=== PATIENT | female | born 1945 ===

== ENCOUNTER 2016-05-29 16:00 | Inpatient (IN) | payer MEDICARE, MEDICAID ==
[~2016-05-29] VITALS: Ht 170.2 cm; Wt 86.7 kg
--- NOTE | ~2016-05-29 | HP ---
PATIENT'S NAME: ALEX MONTANEZ [facility] AGE: 70 Y [address] ROOM: [address] [place], [place] [address] [facility] ADMIT DATE: 05/29/2016 History & Physical DISCHARGE DATE: FAMILY PHYSICIAN: Catrina Reyes MD ATTENDING PHYSICIAN: CIERA CHO DATE OF SERVICE: CHIEF COMPLAINT: Dyspnea at rest and also on exertion on and off as well as productive cough for the last 4 days. The patient is not sure what color is the phlegm. HISTORY OF PRESENT ILLNESS: This is a 70-year-old female, who is somewhat a poor historian. The story is that she says that she has COPD diagnosis for many years, but she does not use any oxygen at home and at baseline she denies any daily productive cough from the chronic bronchitis. She says at baseline, occasionally she gets shortness of breath on exertion. She is active cigarette smoker about 3 cigarettes per day according to her for many years and she tried to quit about 4 days ago. The story is that she said for the last 4 days, she has been experiencing this worsening dyspnea on exertion and sometimes at rest and also productive cough for the last 4 days, but she could not really remember what color was the phlegm. Because of these symptoms, the patient went to see her primary care physician in the office today. Over there in the office, the patient was found to be hypoxic on room air at 89% of saturation and heart rate in the 74 sinus with systolic blood pressure in the 140. Blood work from the clinic show white blood cell of 26,000 and x-ray was performed in the office showed questionable right lower lung infiltrate concerning for pneumonia. The patient was sent over here for admission and further care. REVIEW OF SYSTEMS: As mentioned in the history of present illness. All other systems reviewed and negative except those mentioned in the history of present illness. PAST MEDICAL HISTORY: 1. COPD, not on home oxygen. 2. 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 3. Hypertension. 4. Hyperlipidemia. 5. History of polycystic kidney disease according to the patient and her mother also had this problem too. 6. Prior history of ischemic stroke in the past, many years ago without neurological deficit. PATIENT'S NAME: LISSETH [facility] Nikita [facility] AGE: 70 Y [address] ROOM: [address] [address] LOC[facility]: [facility] ADMIT DATE: 05/29/2016 History & Physical DISCHARGE DATE: FAMILY PHYSICIAN: Catrina Reyes MD ATTENDING PHYSICIAN: CIERA CHO. 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 I do not have the medical records from over there, but according to the patient, the patient had some procedure performed in the brain and the patient was cured without any neurologic deficit. ALLERGIES: MORPHINE, WHICH CAUSES DROWSINESS. HOME MEDICATIONS: Currently is being reconciled. SOCIAL HISTORY: The patient was a former cigarette smoker about 3 cigarettes per day, according to the patient for many years, more than 50 years, and she just recently quit smoking just roughly 4 days ago. She denies any alcohol or any illegal drug use. PAST SURGICAL HISTORY: Status post appendectomy according to the patient. FAMILY HISTORY: The patient could not remember any medical problems in either parents. Both are , but she has no recollection from what cause. PHYSICAL EXAMINATION: VITAL SIGNS: At the time of my dictation; temperature 97.5, heart rate 77, respirations 20, blood pressure 102/52, and saturation 93% on room air. Pain 0/10. GENERAL APPEARANCE: Alert and oriented x3. In no acute distress. HEENT: Pupils are equally round and reactive to light. Extraocular muscles intact. Nasal turbinates are normal bilaterally. Moist oral mucosa. NECK: No JVD. CARDIOVASCULAR: Regular rate and rhythm. Normal S1 and S2. No murmur. No rubs. No gallops. RESPIRATORY: Decreased breath sounds diffusely. Crackles in the right lower lung. Occasional wheezing in both lung weaver. No rales. No rhonchi. ABDOMEN: Soft, nontender, and nondistended. Normal bowel sounds. No hepatosplenomegaly. No palpable mass. EXTREMITIES: No edema in upper or lower extremities. SKIN: No ulcer. No rash. No cyanosis. MUSCULOSKELETAL: No joint pain. No muscle pain. Range of motion intact. NEUROLOGIC: Grossly nonfocal. PATIENT'S NAME: ALEX MOTNANEZ [facility] AGE: 70 Y [address] ROOM: [id number] [place], [place] [address] LOC[facility] ADMIT DATE: 05/29/2016 History & Physical DISCHARGE DATE: FAMILY PHYSICIAN: Catrina Reyes MD ATTENDING PHYSICIAN: CIERA CHO LABORATORY DATA: Blood work was never sent over here with the patient. Currently, our blood workup pending. From the outside facility over the phone, the white blood cell was found to be 26,000. Our blood work has already been drawn and currently is pending. IMAGING STUDIES: Chest x-ray performed from the outside facility over there, the official report is not available; but based on the review from the physician over there, show concerning for right lower lung infiltrate, concerning for pneumonia. ASSESSMENT AND PLAN: 1. Acute hypoxemic respiratory failure secondary to chronic obstructive pulmonary disease exacerbation from community-acquired pneumonia. She does have crackle on the right lower lung and also diffuse wheezing. Treatment will be IV azithromycin and IV ceftriaxone to cover for the community-acquired pneumonia. Oxygen nasal cannula to keep the saturation between 90% to 94% given that she is a chronic obstructive pulmonary disease patient. If her condition worsen, ABG will be performed. Aspiration precaution. Can have a cardiac diet. Nebulization with Xopenex plus Atrovent q.6 hours while awake for 24 hours, then RT to titrate. Also with Xopenex every 2 hours p.r.n. for shortness of breath or wheezing. IV Solu-Medrol 125 mg IV x1 now followed by prednisone 60 mg daily. Urinary antigen for Legionella and pneumococcal. Sputum culture, Gram-stain. Incentive spirometry while awake 10 times per hour. Blood culture 2 sets right now. Leukocytosis is in the 26,000 from the outside facility. A number this high, should be concerning for Clostridium difficile. I will get a stool study test for Clostridium difficile if she ever has diarrhea. Florastor 250 mg p.o. b.i.d. Currently, all labs are pending. I will repeat labs in the morning. I will repeat a chest x-ray in the morning. Check a urinalysis for now. She denies any urinary frequency, urgency, or dysuria. Urine culture if necessary. Further plan depends on clinical course. 2. Regarding her hypertension, I will hold the blood pressure medication, which includes Lopressor and also lisinopril in the setting of chronic obstructive pulmonary disease exacerbation and pneumonia. I will keep her on IV fluids for now for hydration in the setting of sepsis from pneumonia. 3. Regarding her chronic kidney disease stage III to 4 in the setting of polycystic kidney disease. Her labs are pending. I will hold lisinopril. IV fluid hydration in the setting of sepsis from pneumonia. 4. Regarding her hyperlipidemia, continue diet control, on cardiac diet. She is not on any statin at home. 5. Deep venous thrombosis prophylaxis. She will be on heparin subcu 3 times PATIENT'S NAME: ALEX MONTANEZ [facility] AGE: 70 Y [address] ROOM: [place] [address] LOC[facility] ADMIT DATE: 05/29/2016 History & Physical DISCHARGE DATE: FAMILY PHYSICIAN: Catrina Reyes MD ATTENDING PHYSICIAN: CIERA CHO a jus. 6. Code status. She is a full code. Time spent in care on the day of admission 40 minutes including chart review, interviewing and examining the patient, addressing all the questions and concerns that the patient had, and going over the plan of care with the patient and with the nurses. CIERA CHO MD CC/modl /[id number] D: [id number] T: 215 HISTORY & PHYSICAL
--- NOTE | ~2016-05-29 | DS ---
PATIENT'S NAME: ALEX MONTANEZ [facility] AGE: 70 Y [address] ROOM: [address] [place], [place] [address] LOCATION: [facility] ADMIT DATE: 05/29/2016 Discharge Summary DISCHARGE DATE: 05/31/2016 FAMILY PHYSICIAN: Catrina Reyes MD ATTENDING PHYSICIAN: Denys Apodaca PRINCIPAL DIAGNOSIS: 1. Chronic obstructive pulmonary disease exacerbation. 2. Community-acquired pneumonia. 3. Acute respiratory failure with hypoxia. 4. Hypertension. 5. Tobacco dependence. BRIEF HOSPITAL COURSE: This is a 70-year-old female with a history of COPD and tobacco dependence, who presents with worsening shortness of breath, increasing cough, and was admitted for COPD exacerbation and was noted to have pneumonia. The patient also ruled out for PE with a V/Q scan. The patient also has polycystic kidney disease with chronic kidney disease stage 3 and does follow up with Nephrology, Dr. Seay and Dr. Mckeon's office as an outpatient, although she has not followed up for a while. In any case, the patient was started on treatment with steroids, breathing treatments, and antibiotics with ceftriaxone and Rocephin with great response. The patient today is ambulating well without need for supplemental oxygen. Her breathing is much better and feels well. The patient at this point is ready to be discharged home to finish antibiotic course orally and will use doxycycline 100 mg b.i.d. for 7 more days. The patient was noted to have multiple nonspecific sinus arrhythmias on tele, mostly related to her COPD, and appeared to be . At this point, consideration with the patient's chronic kidney disease as well, we will avoid the use of Levaquin, and we will treat with doxycycline and have her closely follow up with her PCP within 1 week. The patient is also to follow up with Dr. Mckeon in 2 weeks, and this appointment is being arranged this week. PHYSICAL EXAMINATION: GENERAL: The patient is awake, alert, and oriented x3, in no acute distress. CHEST: Clear to auscultation bilaterally. HEART: S1, S2. Regular rate and rhythm. ABDOMEN: Soft, nontender, nondistended. Positive bowel sounds. EXTREMITIES: Without edema. NEURO: Grossly nonfocal. MEDICATIONS: Per APR. DISPOSITION: Home. Follow up with primary care physician in 1 week and Nephrology in 2 weeks. PATIENT'S NAME: ALEX MONTANEZ [facility] AGE: 70 Y [address] ROOM: [address] [place] [id number] LOCATION: [facility] ADMIT DATE: 05/29/2016 Discharge Summary DISCHARGE DATE: 05/31/2016 FAMILY PHYSICIAN: Catrnia Reyes MD ATTENDING PHYSICIAN: Denys Apodaca Greater than 30 minutes were spent in discharge planning and facilitating. MD JESSICA DE/modl /[id number] d: 06/01/16 0445 t: 06/04/16 1419, DISCHARGE SUMMARY
[2016-05-29] MEDS ORDERED: HYGROTON25 MG PO (16:51)
[2016-05-29] MEDS ORDERED: LOPRESSOR50 MG PO ×2 (16:51→16:52)
[2016-05-29] MEDS ORDERED: ADVAIR 250-501 EACH INH (16:52)
[2016-05-29] MEDS ORDERED: ZESTRIL40 MG PO (16:52)
[2016-05-29] MEDS ORDERED: SYMBICORT 16010.2 GM INH (16:53)
[2016-05-29] MEDS ORDERED: VITAMIN E400 UNI2 PO (16:53)
[2016-05-29] MEDS ORDERED: COMBIVENT RESPIM4 GM INH (16:53)
[2016-05-29] MEDS ORDERED: ASPIRIN325 MG PO (16:53)
[2016-05-29] MEDS ORDERED: CENTRUM SILVER1 EAC4 PO (16:54)
[2016-05-29] MEDS ORDERED: HYDROCODON-ACE1 EAC4 PO (16:54)
[2016-05-29] MEDS ORDERED: COUGH DROPS1 EAC1 PO (16:55)
[2016-05-29] MEDS ORDERED: TYLENOL EXTRA500 MG PO (16:55)
[2016-05-29] MEDS ORDERED: PROMETH-CODEIN 65 ML PO (16:57)
--- NOTE | 2016-05-29 17:17 | NUR ---
Pt is 70 y/o female admit for COPD exacerbation/sob for hospitalist. Pt allergic to Morphine. Red and yellow bracelet. Hx pneumonia,CVA x2,htn, angina,arrhythmia,arthritis,polycystic kidney,anxiety,depression. Pt alert and oriented x3. Resides at home by herself. Over the past few days has had increased shortness breath. Pt states she saw in April and developed a common cold type illness shortly after and she's not been able to recover from it. Has productive cough of small amt phlegm. Has frequent non prod cough as well.
[2016-05-29 18:27] LABS: HEMATOCRIT 39.9 % (33.0-46.0); HEMOGLOBIN 12.6 g/dL (10.0-15.0); MCH 27.5 pg (27.0-34.0); MCHC 31.6 gm/dL (32.0-36.5); MCV 87.1 fl (83.0-98.0); MPV 10.9 fl (9.4-12.4); PLATELET COUNT 206 K/uL (150-450); RBC 4.58 M/uL (3.50-5.50); RDW-CV 15.3 % (11.9-14.6)
[2016-05-29 18:35] LABS: INR - (THERAPEUTIC) 1.01 (0.92-1.07); PROTIME 10.6 SECONDS (9.8-11.4); PTT 31 SECONDS (25-32)
[2016-05-29 18:46] LABS: ALBUMIN 3.2 gm/dL (3.5-5.0); ANION GAP 15.6 (10.0-19.0); CALCIUM 8.2 mg/dL (8.5-10.5); CREATININE 2.1 mg/dL (0.5-1.1); PHOSPHORUS 3.2 mg/dL (2.5-4.9); POTASSIUM 4.6 mMol/L (3.7-5.1); TOTAL BILIRUBIN 1.1 mg/dL (0.0-1.5); TOTAL PROTEIN 6.6 g/dL (6.0-8.4)
[2016-05-29 18:49] LABS: BANDED NEUTROPHIL # 3.5 K/uL (0.0-0.1); BANDED NEUTROPHILS % 13 %; LYMPHOCYTE % 11 %; MONOCYTE # 1.1 K/uL (0.0-1.0); SEGMENTED NEUTROPHIL # 19.4 K/uL (1.8-7.8); SEGMENTED NEUTROPHIL % 72 %
--- NOTE | 2016-05-30 05:12 | NUR ---
Significant Event: A/O x3. Up in room with 1A. HR's in 70's. Afebrile. SBP's in 110-120's. O2 sats 90-94% on RA. Crackles to bases, VARGAS, and cough. IV to R) wrist with NS running at 75 mls/hr. Complaint of lower back pain at beginning of shift treated with tylenol at 5. Elevated D-Dimer so will do a VQ scan this AM. WBC 26,000 and chest x-ray showed R) lower lung infiltrate questionable for pneumonia in clinic. Orders for another chest x-ray this morning. Had 4 beats of VTACH last night, patient slept through it with no symptoms. Need C.diff sample and sputum culture. Follow up: VQ scan and chest x-ray this morning. Continue per plan of care.
[2016-05-30 08:23] LABS: HEMATOCRIT 37.6 % (33.0-46.0); HEMOGLOBIN 11.9 g/dL (10.0-15.0); MCH 27.2 pg (27.0-34.0); MCHC 31.6 gm/dL (32.0-36.5); MCV 85.8 fl (83.0-98.0); MPV 10.9 fl (9.4-12.4); RBC 4.38 M/uL (3.50-5.50); RDW-CV 15.2 % (11.9-14.6)
[2016-05-30 08:24] LABS: WBC 17.1 K/uL (4.0-11.0)
[2016-05-30 08:40] LABS: ANION GAP 15.2 (10.0-19.0); CALCIUM 7.9 mg/dL (8.5-10.5); MAGNESIUM 2.2 mg/dL (1.3-2.6); POTASSIUM 4.2 mMol/L (3.7-5.1)
--- NOTE | 2016-05-30 11:52 | NUR ---
Introduced self and role of care management to patient. She lives in [place] by herself. She states that she is able to do all her own ADL's. She has a life line at home. She has family that she can call if needed. She plans on returning home on discharge. She denies any needs at this time. Will continue to follow.
--- NOTE | 2016-05-30 17:27 | NUR ---
Significant Event: A/O X3. VSS. ROOM AIR. DENIES PAIN. UP WITH SBA TO BR. VQ SCAN COMPLETED, LOW PROBABILITY OF PE. HR'S 70'S TO LOW 100'S, SR WITH FREQUENT PVC'S, 4 BEATS OF V-TACH. IV TO RIGHT FA WITH NS @ 75 ML/HR. Follow up: CONTINUE TO MONITOR.
[2016-05-31 03:30] LABS: BASOPHIL % 0.1 %; HEMATOCRIT 33.7 % (33.0-46.0); HEMOGLOBIN 10.6 g/dL (10.0-15.0); IMMATURE GRANULOCYTE # 0.1 K/uL (0.0-0.3); IMMATURE GRANULOCYTE % 0.8 %; LYMPHOCYTE # 1.1 K/uL (0.8-4.0); LYMPHOCYTE % 6.8 %; MCH 27.4 pg (27.0-34.0); MCHC 31.5 gm/dL (32.0-36.5); MCV 87.1 fl (83.0-98.0); MONOCYTE # 0.7 K/uL (0.0-1.0); MONOCYTE % 4.2 %; MPV 11.3 fl (9.4-12.4); NEUTROPHIL # (ANC) 13.9 K/uL (1.8-7.8); NEUTROPHIL % 88.1 %; NRBC % 0 /100WBC (0-0.00); PLATELET COUNT 183 K/uL (150-450); RBC 3.87 M/uL (3.50-5.50); RDW-CV 15.4 % (11.9-14.6); WBC 15.8 K/uL (4.0-11.0)
[2016-05-31 03:48] LABS: ALBUMIN 2.4 gm/dL (3.5-5.0); ANION GAP 13.9 (10.0-19.0); CALCIUM 7.5 mg/dL (8.5-10.5); CREATININE 1.8 mg/dL (0.5-1.1); MAGNESIUM 2.2 mg/dL (1.8-2.6); PHOSPHORUS 2.3 mg/dL (2.5-4.9); POTASSIUM 3.9 mMol/L (3.7-5.1)
--- NOTE | 2016-05-31 05:29 | NUR ---
Significant Event: PATIENT A/O X 3, COOPERATIVE WITH CARES. VSS. CONT ON RA, TYLENOL X 1 FOR LEG PAIN, RELIEF NOTED. PATIENT RESTS WELL OVERNIGHT. Follow up: CONTINUE TO MONITOR PER PLAN OF CARE.
[2016-05-31] MEDS ORDERED: DELTASONE20 MG PO (11:41)
[2016-05-31] MEDS ORDERED: DOXYCYCLINE100 MG PO (11:49)
--- NOTE | 2016-05-31 13:41 | NUR ---
Significant Event: A/O x3, cooperative with cares. VSS, SBPs 110s, HRs 70s, on room air. No c/o pain. Up in room et ambulate in [place] with assist of physical therapy. Dismissal instructions given to patient; verbalized understanding. Security contacted for information in regards to location of vehicle d/t them parking it upon patient's admission. Patient dismissed to own vehicle per w/c acccompanied by nursing administrator. Follow up:
== END 2016-05-31 13:35 | disposition disaster alternative care site (69) | DRG 190 ==
LOC: GPCU 16:14
PROVIDERS: ADMIT Internal Medicine
DX: J44.1 Chronic obstructive pulmonary disease with (acute) exacerbation (principal); J18.9 Pneumonia, unspecified organism; J96.01 Acute respiratory failure with hypoxia
CPT/HCPCS: A9539; A9540; G0237; J0456; J0696; J1644; J2930; J7030; J7512; J7612